=== PATIENT | female | born 1970 | race Caucasian/White ===

== ENCOUNTER 2018-04-22 20:22 | Emergency (ER) | payer SELFPAY ==
[~2018-04-22] VITALS: Ht 165.1 cm; Wt 61.2 kg
[~2018-04-22 20:22] MED LIST: AUGMENTIN 875875 MG PO; CLARITIN10 MG PO; HYDROCODONE BIT1 T11 PO; KEFLEX500 MG PO; MEDROL DOSEPAK4 MG PO; MIDRIN (DURADR1 CAP PO; MOBIC7.5 MG PO; MOTRIN800 MG PO; PERCOCET 325 MG1 TA2 PO; PROVENTIL0.09 MG/AC IH; VICODIN 5/500 505 MG PO; ZITHROMAX Z PA250 MG PO; ZOFRAN4 MG PO
[2018-04-22 20:27] VITALS: BP 106/60
[2018-04-22] MEDS ORDERED: ALBENZA200 M1 PO (20:37)
[2018-04-22] MEDS ORDERED: FLONASE ALLERG9.9 ML NAS (20:39)
[2018-04-22] MEDS ORDERED: CLARITIN10 MG PO (20:39)
== END 2018-04-22 21:10 | disposition home or self-care (01) ==
LOC: ED 20:22
DX: Z20.7 Contact with and (suspected) exposure to pediculosis, acariasis and other infestations (principal); J30.9 Allergic rhinitis, unspecified; Z98.51 Tubal ligation status; Z98.890 Other specified postprocedural states; Z91.048 Other nonmedicinal substance allergy status

== ENCOUNTER 2018-06-23 09:17 | Emergency (ER) | payer OTHER ==
[~2018-06-23] VITALS: Ht 165.1 cm; Wt 76.2 kg
[~2018-06-23 09:17] MED LIST changes: +ALBENZA200 M1 PO; +FLONASE ALLERG9.9 ML NAS
[2018-06-23] MEDS ORDERED: MIRALAX17 GM PO (09:25)
[2018-06-23] MEDS ORDERED: COLACE100 MG PO (09:25)
[2018-06-23] MEDS ORDERED: OXYCODONE5 M1 PO (09:25)
[2018-06-23] MEDS ORDERED: PROTONIX20 MG PO (09:26)
[2018-06-23 09:48] LABS: BASO % 0.4 % (0.0-1.0); EOS # 0.1 10*3/uL (0.0-0.4); EOS % 1.4 % (1.0-4.0); HEMATOCRIT 29.6 % (37.0-47.0); HEMOGLOBIN 9.7 g/dl (12.0-16.0); LYMPH % 12.2 % (27.0-41.0); MEAN CELL VOLUME 90.8 fl (81.0-99.0); MEAN CORPUSCULAR HGB 29.8 pg (27.0-31.0); MEAN CORPUSCULAR HGB CONC 32.8 g/dl (33.0-37.0); MEAN PLATELET VOLUME 8.9 fl (9.6-12.3); MONO # 0.5 10*3/uL (0.1-1.0); MONO % 5.8 % (3.0-9.0); NEUT # 6.7 10*3/uL (2.3-7.9); NEUT % 79.8 % (47.0-73.0); PLATELET COUNT AUTOMATED 323 10*3/uL (130-400); RED BLOOD COUNT 3.26 10*6/uL (4.10-5.10); RED CELL DISTRI WIDTH 14.1 % (0-14.5); WHITE BLOOD COUNT 8.3 10*3/uL (4.8-10.8)
[2018-06-23 10:09] LABS: ALBUMIN 3.4 gm/dl (3.1-4.5); ALKALINE PHOSPHATASE 90 U/L (45-117); BUN 12 mg/dl (7-24); CHLORIDE 106 mmol/L (98-107); CREATININE 0.72 mg/dL (0.55-1.02); POTASSIUM 3.8 mmol/L (3.5-5.1); SGOT/AST 39 IU/L (3-35); SGPT/ALT 42 U/L (12-78); SODIUM 140 mmol/L (136-145); TOTAL PROTEIN 7.3 gm/dL (6.4-8.2)
[2018-06-23 10:13] VITALS: BP 142/89
[2018-06-23] MEDS ORDERED: Motrin,Rufen800 MG PO (11:00)
== END 2018-06-23 11:12 | disposition home or self-care (01) ==
LOC: ED 09:17
PROVIDERS: Emergency Medicine
DX: M25.551 Pain in right hip (principal); M79.605 Pain in left leg; R10.30 Lower abdominal pain, unspecified; M54.5 Low back pain; Z79.899 Other long term (current) drug therapy

== ENCOUNTER 2018-10-24 14:11 | Emergency (ER) | payer OTHER ==
[~2018-10-24] VITALS: Ht 165.1 cm; Wt 72.1 kg
[~2018-10-24 14:11] MED LIST changes: +COLACE100 MG PO; +MIRALAX17 GM PO; +Motrin,Rufen800 MG PO; +OXYCODONE5 M1 PO; +PROTONIX20 MG PO
[2018-10-24 14:12] VITALS: BP 142/72
[2018-10-24] MEDS ORDERED: Motrin,Rufen800 MG PO (16:41)
== END 2018-10-24 16:55 | disposition home or self-care (01) ==
LOC: ED 14:11
DX: S76.011A Strain of muscle, fascia and tendon of right hip, initial encounter (principal); Z79.899 Other long term (current) drug therapy; W00.0XXA Fall on same level due to ice and snow, initial encounter; Y93.89 Activity, other specified; Y92.89 Other specified places as the place of occurrence of the external cause; Y99.8 Other external cause status

== ENCOUNTER 2019-01-15 16:10 | Emergency (ER) | payer OTHER ==
[~2019-01-15] VITALS: Ht 165.1 cm; Wt 72.6 kg
[2019-01-15 16:12] VITALS: BP 105/62
[2019-01-15 17:00] LABS: BASO % 0.2 % (0.0-1.0); EOS # 0.3 10*3/uL (0.0-0.4); EOS % 6.9 % (1.0-4.0); HEMATOCRIT 35.4 % (37.0-47.0); HEMOGLOBIN 11.2 g/dl (12.0-16.0); LYMPH # 1.9 10*3/uL (1.3-4.4); LYMPH % 43.1 % (27.0-41.0); MEAN CELL VOLUME 93.4 fl (81.0-99.0); MEAN CORPUSCULAR HGB 29.6 pg (27.0-31.0); MEAN CORPUSCULAR HGB CONC 31.6 g/dl (33.0-37.0); MEAN PLATELET VOLUME 10.2 fl (9.6-12.3); MONO # 0.5 10*3/uL (0.1-1.0); MONO % 10.6 % (3.0-9.0); NEUT # 1.7 10*3/uL (2.3-7.9); PLATELET COUNT AUTOMATED 244 10*3/uL (130-400); RED BLOOD COUNT 3.79 10*6/uL (4.10-5.10); RED CELL DISTRI WIDTH 13.5 % (0-14.5); WHITE BLOOD COUNT 4.3 10*3/uL (4.8-10.8)
[2019-01-15 17:16] LABS: ALBUMIN 3.7 gm/dl (3.1-4.5); ALKALINE PHOSPHATASE 81 U/L (45-117); BUN 12 mg/dl (7-24); CHLORIDE 110 mmol/L (98-107); CREATININE 1.03 mg/dL (0.55-1.02); POTASSIUM 4.1 mmol/L (3.5-5.1); SGOT/AST 12 IU/L (3-35); SGPT/ALT 20 U/L (12-78); SODIUM 143 mmol/L (136-145); TOTAL PROTEIN 7.1 gm/dL (6.4-8.2)
[2019-01-15] MEDS ORDERED: MEDROL DOSEPAK4 MG PO (18:22)
== END 2019-01-15 18:25 | disposition home or self-care (01) ==
LOC: ED 16:10
PROVIDERS: Internal Medicine
DX: R20.0 Anesthesia of skin (principal); Z98.890 Other specified postprocedural states; Z98.51 Tubal ligation status; Z79.899 Other long term (current) drug therapy

== ENCOUNTER 2019-04-15 16:09 | Emergency (ER) | payer OTHER ==
[~2019-04-15] VITALS: Ht 165.1 cm; Wt 65.8 kg
[2019-04-15] MEDS ORDERED: CITALOPRAM20 MG PO (16:14)
[2019-04-15] MEDS ORDERED: NAPROXEN D/R500 MG PO (16:15)
[2019-04-15] MEDS ORDERED: GOOD NEIGHBOR L10 MG PO (16:15)
[2019-04-15] MEDS ORDERED: NEURONTIN300 MG PO (16:15)
[2019-04-15] MEDS ORDERED: CEPHALEXIN500 M1 PO (16:24)
[2019-04-15] MEDS ORDERED: SEPTDS PO (16:24)
[2019-04-15 16:34] VITALS: BP 122/88
== END 2019-04-15 16:41 | disposition home or self-care (01) ==
LOC: ED 16:09
DX: L02.412 Cutaneous abscess of left axilla (principal); Z79.899 Other long term (current) drug therapy

== ENCOUNTER 2019-06-19 21:12 | Emergency (ER) | payer OTHER ==
[~2019-06-19] VITALS: Wt 72.6 kg
[~2019-06-19 21:12] MED LIST changes: +CEPHALEXIN500 M1 PO; +CITALOPRAM20 MG PO; +GOOD NEIGHBOR L10 MG PO; +NAPROXEN D/R500 MG PO; +NEURONTIN300 MG PO; +SEPTDS PO
[2019-06-19 23:34] LABS: BASO % 0.2 % (0.0-1.0); EOS # 0.2 10*3/uL (0.0-0.4); EOS % 2.8 % (1.0-4.0); HEMATOCRIT 35.3 % (37.0-47.0); HEMOGLOBIN 11.6 g/dl (12.0-16.0); LYMPH # 2.7 10*3/uL (1.3-4.4); LYMPH % 32.3 % (27.0-41.0); MEAN CELL VOLUME 95.1 fl (81.0-99.0); MEAN CORPUSCULAR HGB 31.3 pg (27.0-31.0); MEAN CORPUSCULAR HGB CONC 32.9 g/dl (33.0-37.0); MEAN PLATELET VOLUME 10.1 fl (9.6-12.3); MONO # 0.4 10*3/uL (0.1-1.0); NEUT % 59.5 % (47.0-73.0); PLATELET COUNT AUTOMATED 233 10*3/uL (130-400); RED BLOOD COUNT 3.71 10*6/uL (4.10-5.10); RED CELL DISTRI WIDTH 15.1 % (0-14.5); WHITE BLOOD COUNT 8.5 10*3/uL (4.8-10.8)
[2019-06-19 23:44] LABS: INTERNATIONAL NORM RATIO 0.9 (2.0-3.5)
[2019-06-19 23:48] LABS: ALBUMIN 3.1 gm/dl (3.1-4.5); ALKALINE PHOSPHATASE 66 U/L (45-117); BUN 16 mg/dl (7-24); CHLORIDE 107 mmol/L (98-107); CREATININE 0.73 mg/dL (0.55-1.02); POTASSIUM 4.2 mmol/L (3.5-5.1); SGOT/AST 13 IU/L (3-35); SGPT/ALT 16 U/L (12-78); SODIUM 140 mmol/L (136-145); TOTAL PROTEIN 5.7 gm/dL (6.4-8.2)
[2019-06-20 00:56] VITALS: BP 126/64
== END 2019-06-20 03:08 | disposition short-term general hospital (02) ==
LOC: ED 21:12
PROVIDERS: Emergency Medicine
DX: M25.551 Pain in right hip (principal); Z79.899 Other long term (current) drug therapy; W17.89XA Other fall from one level to another, initial encounter; Y93.89 Activity, other specified; Y92.89 Other specified places as the place of occurrence of the external cause; Y99.8 Other external cause status

== ENCOUNTER 2019-07-27 19:34 | Emergency (ER) | payer OTHER ==
[~2019-07-27] VITALS: Ht 165.1 cm; Wt 71.7 kg
[2019-07-27 19:37] VITALS: BP 104/60
[2019-07-27 19:59] LABS: BASO % 0.5 % (0.0-1.0); EOS # 0.3 10*3/uL (0.0-0.4); EOS % 4.4 % (1.0-4.0); HEMOGLOBIN 10.9 g/dl (12.0-16.0); LYMPH # 2.8 10*3/uL (1.3-4.4); LYMPH % 36.6 % (27.0-41.0); MEAN CELL VOLUME 97.7 fl (81.0-99.0); MEAN CORPUSCULAR HGB 31.3 pg (27.0-31.0); MEAN CORPUSCULAR HGB CONC 32.1 g/dl (33.0-37.0); MEAN PLATELET VOLUME 10.1 fl (9.6-12.3); MONO # 0.5 10*3/uL (0.1-1.0); NEUT % 52.4 % (47.0-73.0); PLATELET COUNT AUTOMATED 227 10*3/uL (130-400); RED BLOOD COUNT 3.48 10*6/uL (4.10-5.10); RED CELL DISTRI WIDTH 14.2 % (0-14.5); WHITE BLOOD COUNT 7.7 10*3/uL (4.8-10.8)
[2019-07-27 20:30] LABS: BUN 13 mg/dl (7-24); CHLORIDE 112 mmol/L (98-107); CREATININE 1.14 mg/dL (0.55-1.02); POTASSIUM 4.2 mmol/L (3.5-5.1); SODIUM 142 mmol/L (136-145)
== END 2019-07-27 20:52 | disposition home or self-care (01) ==
LOC: ED 19:34
PROVIDERS: Physician Assistant
DX: M25.551 Pain in right hip (principal); R10.31 Right lower quadrant pain; Z96.641 Presence of right artificial hip joint; Z79.2 Long term (current) use of antibiotics; Z79.899 Other long term (current) drug therapy; X50.1XXA Overexertion from prolonged static or awkward postures, initial encounter; Y93.89 Activity, other specified; Y92.098 Other place in other non-institutional residence as the place of occurrence of the external cause; Y99.8 Other external cause status

== ENCOUNTER 2019-11-19 23:50 | Emergency (ER) | payer OTHER ==
[~2019-11-19] VITALS: Ht 165.1 cm; Wt 81.6 kg
[2019-11-20 00:28] LABS: BASO # 0.1 10*3/uL (0.0-0.1); BASO % 0.4 % (0.0-1.0); EOS # 0.2 10*3/uL (0.0-0.4); EOS % 1.5 % (1.0-4.0); HEMATOCRIT 35.6 % (37.0-47.0); HEMOGLOBIN 11.7 g/dl (12.0-16.0); LYMPH # 2.5 10*3/uL (1.3-4.4); LYMPH % 18.4 % (27.0-41.0); MEAN CELL VOLUME 95.4 fl (81.0-99.0); MEAN CORPUSCULAR HGB 31.4 pg (27.0-31.0); MEAN CORPUSCULAR HGB CONC 32.9 g/dl (33.0-37.0); MEAN PLATELET VOLUME 10.3 fl (9.6-12.3); MONO # 1.1 10*3/uL (0.1-1.0); MONO % 8.1 % (3.0-9.0); NEUT # 9.5 10*3/uL (2.3-7.9); NEUT % 71.2 % (47.0-73.0); PLATELET COUNT AUTOMATED 278 10*3/uL (130-400); RED BLOOD COUNT 3.73 10*6/uL (4.10-5.10); RED CELL DISTRI WIDTH 13.1 % (0-14.5); WHITE BLOOD COUNT 13.4 10*3/uL (4.8-10.8)
[2019-11-20 00:46] LABS: BACTERIA 4+; BILIRUBIN NEGATIVE (NEGATIVE); BLOOD 1+ (NEGATIVE); CLARITY CLEAR (CLEAR); COLOR YELLOW (YELLOW); EPITHELIAL CELLS 0-2; GLUCOSE NEGATIVE (NEGATIVE); KETONE 1+ (NEGATIVE); LEUKO ESTERASE 1+ (NEGATIVE); NITRITE POSITIVE (NEGATIVE); UROBILINOGEN 0.2 E.U./dl (0.2-1.0); WBC 21-30 wbc/hpf (0-5)
[2019-11-20 00:47] LABS: ALKALINE PHOSPHATASE 89 U/L (45-117); BUN 23 mg/dl (7-24); CHLORIDE 109 mmol/L (98-107); CREATININE 1.16 mg/dL (0.55-1.02); POTASSIUM 4.5 mmol/L (3.5-5.1); SGOT/AST 22 IU/L (3-35); SGPT/ALT 23 U/L (12-78); SODIUM 141 mmol/L (136-145); TOTAL PROTEIN 7.5 gm/dL (6.4-8.2)
[2019-11-20 00:50] LABS: URINE AMPHETAMINES < 1000 (1000ng/ml); URINE BARBITURATES < 200 (200ng/ml); URINE BENZODIAZEPINES < 200 (200ng/ml); URINE CANNABINOIDS (THC) < 50 (50ng/ml); URINE COCAINE > 300 (300ng/ml); URINE METHADONE < 300 (300ng/ml); URINE OPIATES < 300 (300ng/ml); URINE PHENCYCLIDINE < 25 (25ng/ml)
[2019-11-20 05:03] VITALS: BP 132/72
== END 2019-11-20 06:47 | disposition home or self-care (01) ==
LOC: ED 23:50
PROVIDERS: Emergency Medicine
DX: F14.921 Cocaine use, unspecified with intoxication delirium (principal); R00.0 Tachycardia, unspecified; R61 Generalized hyperhidrosis; L29.9 Pruritus, unspecified; R10.9 Unspecified abdominal pain; R25.3 Fasciculation; F41.9 Anxiety disorder, unspecified; F17.200 Nicotine dependence, unspecified, uncomplicated; Z79.2 Long term (current) use of antibiotics; Z79.899 Other long term (current) drug therapy

== ENCOUNTER → 2020-12-02 | Outpatient (CLI) | payer OTHER | END | disposition home or self-care (01) | LOC: RAD 13:30 | PROVIDERS: ATTEND Family Medicine | DX: M85.852 Other specified disorders of bone density and structure, left thigh (principal); M25.511 Pain in right shoulder; N95.1 Menopausal and female climacteric states ==

== ENCOUNTER 2022-08-25 16:48 | Emergency (ER) | payer OTHER ==
[~2022-08-25] VITALS: Ht 165.1 cm; Wt 76.7 kg
[2022-08-25 17:38] VITALS: BP 137/92
== END 2022-08-25 19:06 | disposition home or self-care (01) ==
LOC: ED 16:48
DX: M25.561 Pain in right knee (principal); Z98.890 Other specified postprocedural states

== ENCOUNTER 2023-02-12 20:43 | Emergency (ER) | payer OTHER ==
[2023-02-12 22:19] LABS: MEAN CELL VOLUME 80.2 fl (81.0-99.0); MEAN CORPUSCULAR HGB 22.4 pg (27.0-31.0); MEAN PLATELET VOLUME 9.9 fl (9.6-12.3); PLATELET COUNT AUTOMATED 312 10*3/uL (130-400); RED BLOOD COUNT 2.32 10*6/uL (4.10-5.10); RED CELL DISTRI WIDTH 19.4 % (0-14.5); WHITE BLOOD COUNT 6.6 10*3/uL (4.8-10.8)
[2023-02-12 22:31] LABS: HEMATOCRIT 18.6 % (37.0-47.0); MANUAL DIFF REFLEX YES
[2023-02-12 22:46] LABS: ALKALINE PHOSPHATASE 77 U/L (46-116); BUN 10 mg/dl (9-23); CHLORIDE 108 mmol/L (98-107); POTASSIUM 4.2 mmol/L (3.4-5.1); SGPT/ALT 15 U/L (10-49); TOTAL PROTEIN 6.2 gm/dL (6.0-8.0)
[2023-02-12 22:51] LABS: PLATELET SUFFICIENCY NORMAL (NORMAL); TOTAL CELLS COUNTED 100 #CELLS
[2023-02-12 22:52] LABS: MICROCYTOSIS MODERATE; POLYCHROMASIA SLIGHT
[2023-02-13] VITALS (11 sets, daily range): BP systolic 100–155; BP diastolic 64–96
[2023-02-13 08:42] LABS: BASO % 0.5 % (0.0-1.0); EOS # 0.1 10*3/uL (0.0-0.4); EOS % 1.2 % (1.0-4.0); HEMATOCRIT 24.5 % (37.0-47.0); LYMPH # 2.2 10*3/uL (1.3-4.4); LYMPH % 28.4 % (27.0-41.0); MEAN CELL VOLUME 81.1 fl (81.0-99.0); MEAN CORPUSCULAR HGB 25.8 pg (27.0-31.0); MEAN CORPUSCULAR HGB CONC 31.8 g/dl (33.0-37.0); MEAN PLATELET VOLUME 9.6 fl (9.6-12.3); MONO # 0.5 10*3/uL (0.1-1.0); MONO % 6.3 % (3.0-9.0); NEUT # 4.8 10*3/uL (2.3-7.9); NEUT % 63.2 % (47.0-73.0); PLATELET COUNT AUTOMATED 286 10*3/uL (130-400); RED BLOOD COUNT 3.02 10*6/uL (4.10-5.10); RED CELL DISTRI WIDTH 18.4 % (0-14.5); WHITE BLOOD COUNT 7.6 10*3/uL (4.8-10.8)
[2023-02-13 09:05] LABS: BUN 10 mg/dl (9-23); CHLORIDE 109 mmol/L (98-107); POTASSIUM 3.9 mmol/L (3.4-5.1)
== END 2023-02-13 09:45 | disposition home or self-care (01) ==
LOC: ED 20:43
PROVIDERS: Emergency Medicine
DX: N93.8 Other specified abnormal uterine and vaginal bleeding (principal); D21.9 Benign neoplasm of connective and other soft tissue, unspecified; D62 Acute posthemorrhagic anemia; Z79.899 Other long term (current) drug therapy; Z98.51 Tubal ligation status; Z90.49 Acquired absence of other specified parts of digestive tract

== ENCOUNTER → 2023-03-05 | Outpatient (CLI) | payer OTHER | END | disposition home or self-care (01) | LOC: RAD 09:59 → MAMMO 10:30 | PROVIDERS: ATTEND Internal Medicine Nephrology | DX: Z12.31 Encounter for screening mammogram for malignant neoplasm of breast (principal); M85.852 Other specified disorders of bone density and structure, left thigh; N95.1 Menopausal and female climacteric states ==

== ENCOUNTER 2024-09-18 03:03 | Emergency (ER) | payer OTHER | END 2024-09-18 03:44 | disposition left against medical advice (07) | LOC: ED 03:03 | DX: F41.9 Anxiety disorder, unspecified (principal); Z53.29 Procedure and treatment not carried out because of patient's decision for other reasons; Z90.49 Acquired absence of other specified parts of digestive tract; Z98.890 Other specified postprocedural states ==